=== PATIENT | male | born 1985 ===

== ENCOUNTER 2020-09-22 14:03 | Outpatient (REF) | payer OTHER, SELFPAY ==
[2020-09-22 17:20] LABS: Alanine Aminotransferase 11 U/L (0-40); Albumin Level 4.6 g/dL (3.5-5.0); Alkaline Phosphatase 27 U/L (39-117); Anion Gap 13 (12-20); Aspartate Amino Transferase 16 U/L (5-37); Bilirubin Total 0.7 mg/dL (0.0-1.0); Blood Urea Nitrogen 8 mg/dL (9-16); Calcium 9.7 mg/dL (8.4-10.2); Carbon Dioxide 30 mmol/L (22-29); Chloride 102 mmol/L (96-108); Cholesterol 150 mg/dL; Estimated Glomerular Filt Rate > 60; Glucose Fasting 77 mg/dL (60-99); HDL Cholesterol 58 mg/dL; LDL Cholesterol Calculated 77 mg/dl; Potassium 4.7 mmol/L (3.3-5.1); Sodium 140 mmol/L (135-145); Total Protein 7.5 g/dL (6.5-8.0); Triglycerides 78 mg/dL
== END 2020-09-22 14:04 | disposition home or self-care (01) ==
LOC: HO.HMGCLDS 14:03
PROVIDERS: PCP Family Medicine; Visit Provider Family Medicine
DX: Z00.00 Encounter for general adult medical examination without abnormal findings (principal)
CPT/HCPCS: 36415; 80053; 80061; 84443

== ENCOUNTER 2023-07-04 18:09 | Emergency (ER) | payer SELFPAY ==
[2023-07-04 18:30] VITALS: BP 134/90; PULSE 100; RESP 18; TEMP 37.2; O2SAT 98; BMI 21.8
--- NOTE | 2023-07-04 18:31 | ED.GENADULT ---
HPI - General Adult General Chief complaint: Nausea/Vomiting/Diarrhea Stated complaint: vomiting, clear diarrhea since 1 am Time Seen by Provider: 07/04/23 21:49 Source: patient and other Mode of arrival: ambulatory History of Present Illness HPI narrative: 37-year-old male who woke up at 01:00 yesterday morning with chills, nausea, vomiting and multiple episodes of diarrhea, reports decreased appetite and weakness and states he doubts it is food poisoning as he had not had anything to eat 12 hours prior to onset of symptoms. Patient has a history of both alcohol use as well as cannabis use. Related Data Previous Rx's Medication Instructions Recorded escitalopram oxalate 10 mg tablet 10 mg PO DAILY 30 days #30 tabs 10/04/20 ondansetron 4 mg disintegrating 4 mg PO Q8H PRN nausea and 07/04/23 tablet vomiting #6 tabs Allergies Allergy/AdvReac Type Severity Reaction Status Date / Time cefaclor [From Ceclor] AdvReac Severe Joint Pain Verified 10/04/20 15:10 Review of Systems Review of Systems: Pertinent positives and negatives as stated in HPI PMFSH Past Medical History Source: nursing notes reviewed Medical History Asthma Family History Family History Mother Heart problem Father Heart attack Social History Social History Alcohol intake: current Alcohol intake frequency: 3 or more drinks per day Alcohol type: beer and hard liquor Cigarette Packs Per Day: 1 Years Smoked: 10 Advance Directives: No Advance Directives Information Provided: No Physical Exam ED Vital Signs: Vital Signs - 24 hr 07/04/23 18:30 07/04/23 21:49 07/04/23 22:24 Temperature 99 F 98.7 F Pulse Rate 100 93 77 Respiratory Rate 18 18 18 Blood Pressure 134/90 H 117/77 118/76 Pulse Oximetry 98 97 99 Oxygen Delivery Method Room Air Room Air Room Air BMI result Body Mass Index 21.8 VITAL SIGNS: Reviewed. GENERAL: Well developed, well nourished, in no acute distress. HEAD: Normocephalic/atraumatic EYES: PERRLA, EOMI EARS: Ext canals without abnormality, TMs non-bulging and non-erythematous NOSE: Nares patent bilateral OROPHARYNX: no oral lesions noted, posterior pharynx clear and non-erythematous without noted tonsillar enlargement/erythema/exudates NECK: Supple, no adenopathy LUNGS: Normal breath sounds. No adventitious sounds or accessory muscle use. SpO2<97> CARDIOVASCULAR: Regular rate and rhythm without noted murmurs ABDOMEN: Soft, non-tender, non-distended with bowel sounds. MUSCULOSKELETAL: No tenderness, deformities, or effusions noted on gross inspection. EXTREMITIES: No cyanosis, clubbing or edema. SKIN: Inspection of the skin reveals no rashes NEUROLOGIC: Alert and oriented x 4. Strength and sensation to light touch were grossly intact x 4. Medications Administered Discontinued Medications Generic Name Dose Route Start Last Admin Trade Name Freq PRN Reason Stop Dose Admin Sodium Chloride 1,000 mls @ 999 mls/hr 07/04/23 22:15 07/04/23 22:25 Ns IV 07/04/23 23:15 999 mls/hr .Q1H1M JUSTIN Administration Ketorolac Tromethamine 15 mg 07/04/23 22:02 07/04/23 22:28 Ketorolac Tromethamine 30 Mg/Ml Vial IVPUSH 07/04/23 22:03 15 mg ONCE ONE Administration Ondansetron HCl 4 mg 07/04/23 22:02 07/04/23 22:28 Ondansetron Hcl 4 Mg/2 Ml Vial IVPUSH 07/04/23 22:03 4 mg ONCE ONE Administration Medical Decision Making Medical Decision Making MDM Narrative: 37-year-old male with history and clinical presentation, DDX: Hyperemesis cannabis, viral illness, food poisoning, no clinical suspicion for C diff at this time. Reviewed all investigations and hematologic indices demonstrates a noninfectious leukocytosis that is felt to be reactive in nature, there is no anemia or thrombocytopenia. Chemistry indices do not demonstrate an LOBITO and there is no electrolyte or liver enzyme derangements. Lipase is within normal limits. Urinalysis is negative for UTI or hematuria. UDS-positive marijuana. Viral testing positive for COVID. Patient received IV fluids, antiemetics, anti-inflammatories, he has had no further episodes diarrhea and states he is feeling much better. He is otherwise discharged home with viral syndrome/gastroenteritis/COVID-19 positivity. Differential Diagnosis Differential Diagnoses: The differential diagnosis associated with the presentation includes Please see the discussion above Admission/Observation Consideration of admission/observation: Escalation of care including admission/observation considered Please see the discussion above Lab Data MDM Lab Attestation statement: I reviewed the patient's lab results. Please see the discussion above 07/04/23 19:37 07/04/23 19:37 Labs: Lab Results 07/04/23 07/04/23 Range/Units 19:37 19:56 WBC 12.4 H (4.8-10.8) X10*3/uL RBC 6.11 H (4.60-5.80) X10*6/uL Hgb 17.8 (14.0-18.0) g/dl Hct 53.9 H (42.0-52.0) % MCV 88.2 (80.0-98.0) fL MCH 29.1 (27.0-33.0) pg MCHC 33.0 (31.0-36.0) g/dl RDW 13.8 (11.0-16.0) % Plt Count 290 (160-400) X10*3/uL MPV 9.7 (9.4-12.4) fL Immature Gran % (Auto) 0.5 H (0.0-0.4) % Neut % (Auto) 86.9 H (45-73) % Lymph % (Auto) 6.1 L (20-40) % [place] % (Auto) 6.3 (2-11) % Eos % (Auto) 0.0 (0-4) % Baso % (Auto) 0.2 (0-2) % Lymph # (Auto) 0.8 L (1.2-4.9) X10*3/uL [place] # (Auto) 0.8 (0.1-1.2) X10*3/uL Eos # (Auto) 0.0 (0.0-0.4) X10*3/uL Baso # (Auto) 0.0 (0.0-0.2) X10*3/uL Abs Immat Gran (auto) 0.06 H (0.00-0.03) X10*3/uL Absolute Neuts (auto) 10.8 H (2.0-8.3) x10*3/uL Absolute Nucleated RBC 0.000 (0.0-0.012) X10*3/uL Nucleated RBC % (auto) 0.0 (0.0-0.2) /100WBC Sodium 140 (135-145) mmol/L Potassium 4.3 (3.3-5.1) mmol/L Chloride 105 (96-108) mmol/L Carbon Dioxide 21 L (22-29) mmol/L Anion Gap 18 (12-20) BUN 8 L (9-16) mg/dL Creatinine 1.06 (0.5-1.4) mg/dL Estim Creat Clear Calc 102.9 Estimated GFR > 60 Random Glucose 115 (60-115) mg/dL Calcium 9.7 (8.4-10.2) mg/dL Total Bilirubin 0.7 (0.0-1.0) mg/dL AST 47 H (5-37) U/L ALT 26 (0-40) U/L Alkaline Phosphatase 31 L (39-117) U/L Total Protein 8.2 H (6.5-8.0) g/dL Albumin 4.8 (3.5-5.0) g/dL Lipase 20 (8-78) U/L Urine Color Dark Yellow Urine Appearance Clear Urine pH 6.0 (5.0-9.0) Ur Specific [place] >= 1.030 H (1.005-1.025) Urine Protein 30 (1+) H (Neg-Trace) mg/dL Urine Glucose (UA) Negative (Negative) mg/dL Urine Ketones 40 (Negative) mg/dL Urine Blood Negative (Negative) Urine Nitrite Negative (Negative) Ur Leukocyte Esterase Negative (Negative) Urine RBC 0-2 (0-2) /HPF Urine WBC 0-5 (0-5) /HPF Ur Squamous Epith Cells 0-2 (0-2) /HPF Urine Bacteria None Seen (None Seen) Hyaline Casts 0-2 (0-2) /LPF Urine Opiates Screen Not Detected (Not Detect) Urine Fentanyl Screen Not Detected (Not Detect) Ur Barbiturates Screen Not Detected (Not Detect) Ur Phencyclidine Scrn Not Detected (Not Detect) Ur Amphetamines Screen Not Detected (Not Detect) U Benzodiazepines Scrn Not Detected (Not Detect) Urine Cocaine Screen Not Detected (Not Detect) U Marijuana (THC) Screen POSITIVE H (Not Detect) COVID-19 (ATA) Positive A (Negative) COVID-19 Clin Com See Note Influenza Type A (PRAMOD) Negative (Negative) Influenza Type B (PRAMOD) Negative (Negative) Influenza A & B Note See Note Critical Care Time Critical Care Time Critical Care Time: Yes Total Critical Care Time: 45 Attestation: I personally attest to this time spent taking care of the patient. Discharge Plan Discharge Clinical Impression: Viral syndrome, Gastroenteritis, Dehydration, COVID-19 Patient Disposition: Home, Self-Care Instructions: Dehydration (ED), Gastroenteritis (ED), Viral Syndrome (ED), COVID-19 (Coronavirus Disease 2019) (ED) Additional Instructions: You must isolate for the next 5 days, utilize Tylenol/ibuprofen as needed for elevated temperature is/body aches/headaches. I have sent a prescription for nausea control medication to your pharmacy. Return if you experience any worsening symptoms. Prescriptions: New ondansetron 4 mg tablet,disintegrating 4 mg PO Q8H PRN (Reason: nausea and vomiting) Qty: 6 0RF Rx Instructions: 1st dose 1-2 hr before radiation No Action escitalopram oxalate 10 mg tablet 10 mg PO DAILY 30 Days Qty: 30 1RF
[2023-07-04 19:45] LABS: MANUAL DIFF FLAG NO
[2023-07-04 19:47] LABS: Basophils Percent Auto 0.2 % (0-2); Hematocrit 53.9 % (42.0-52.0); Hemoglobin 17.8 g/dl (14.0-18.0); Imm Gran Abs Auto 0.06 X10*3/uL (0.00-0.03); Imm Gran Pct Auto 0.5 % (0.0-0.4); Lymphocytes Absolute Auto 0.8 X10*3/uL (1.2-4.9); Lymphocytes Percent Auto 6.1 % (20-40); Mean Corpuscular Hemoglobin 29.1 pg (27.0-33.0); Mean Corpuscular Volume 88.2 fL (80.0-98.0); Mean Platelet Volume 9.7 fL (9.4-12.4); Monocytes Absolute Auto 0.8 X10*3/uL (0.1-1.2); Monocytes Percent Auto 6.3 % (2-11); Neutrophils Absolute Auto 10.8 x10*3/uL (2.0-8.3); Neutrophils Percent Auto 86.9 % (45-73); Platelet Count 290 X10*3/uL (160-400); Red Blood Count 6.11 X10*6/uL (4.60-5.80); Red Cell Distribution Width 13.8 % (11.0-16.0); White Blood Count 12.4 X10*3/uL (4.8-10.8)
[2023-07-04 20:00] LABS: Alanine Aminotransferase 26 U/L (0-40); Albumin Level 4.8 g/dL (3.5-5.0); Alkaline Phosphatase 31 U/L (39-117); Anion Gap 18 (12-20); Aspartate Amino Transferase 47 U/L (5-37); Bilirubin Total 0.7 mg/dL (0.0-1.0); Blood Urea Nitrogen 8 mg/dL (9-16); Calcium 9.7 mg/dL (8.4-10.2); Carbon Dioxide 21 mmol/L (22-29); Chloride 105 mmol/L (96-108); Creatinine Clr Calc Pharmacy 102.9; Estimated Glomerular Filt Rate > 60; Glucose Random 115 mg/dL (60-115); Lipase 20 U/L (8-78); Potassium 4.3 mmol/L (3.3-5.1); Sodium 140 mmol/L (135-145); Total Protein 8.2 g/dL (6.5-8.0)
[2023-07-04 20:06] LABS: Appearance Urine Clear; Color Urine Dark Yellow; Glucose Urine UA Negative (Negative); Leukocyte Esterase Urine Negative (Negative); Nitrite Urine Negative (Negative); Specific Gravity - Urine >= 1.030 (1.005-1.025); UMIC TRIGGER UACC YES; Urine Blood Negative (Negative); Urine Ketones 40 mg/dL (Negative); Urine Protein 30 (1+) mg/dL (Neg-Trace)
[2023-07-04 20:10] LABS: COVID-19 Test Positive (Negative); IDNOW Serial# 08D9AD1C
[2023-07-04 20:12] LABS: Amphetamine Screen Urine Not Detected (Not Detect); Barbiturates, Urine Not Detected (Not Detect); Benzodiazepines Screen Urine Not Detected (Not Detect); Cannabinoid Screen Urine POSITIVE (Not Detect); Cocaine Screen Urine Not Detected (Not Detect); Fentanyl, urine Not Detected (Not Detect); Opiate Screen Urine Not Detected (Not Detect); Phencyclidine Screen Urine Not Detected (Not Detect)
[2023-07-04 20:22] LABS: Bacteria Urine None Seen (None Seen); Hyaline Casts Urine 0-2 /LPF (0-2); RBC Urine 0-2 /HPF (0-2); Squamous Epithelial Cell Urine 0-2 /HPF (0-2); WBC Urine 0-5 /HPF (0-5)
[2023-07-04 20:25] LABS: IDNOW Serial# 152EDE1D; Influenza A Negative (Negative); Influenza B2 Negative (Negative)
[2023-07-04 21:49] VITALS: BP 117/77; PULSE 93; RESP 18; TEMP 37.1; O2SAT 97
[2023-07-04 22:24] VITALS: BP 118/76; PULSE 77; RESP 18; O2SAT 99
[2023-07-04] MEDS: 0.9 % Sodium Chloride 1,000 ML 999 ML IV (22:25)
[2023-07-04] MEDS: ondansetron HCL 4 MG/2 ML VIAL IVPUSH (22:28)
[2023-07-04] MEDS: Ketorolac Tromethamine 30 MG/ML VIAL 15 MG IVPUSH (22:28)
[2023-07-04 23:58] VITALS: BP 100/58; PULSE 89
== END 2023-07-05 00:19 | disposition home or self-care (01) ==
PROVIDERS: Physician Assistant; Emergency Provider Student in an Organized Health Care Education/Training Program
DX: U07.1 COVID-19 (principal); B34.9 Viral infection, unspecified; K52.89 Other specified noninfective gastroenteritis and colitis; E86.0 Dehydration; Z79.899 Other long term (current) drug therapy
CPT/HCPCS: 36415; 80053; 80307; 81001; 83690; 85025; 87502; 87635; 96361; 96374; 96375; 99284; J1885; J2405